=== PATIENT | male | born 1970 | race Two or more races ===

== ENCOUNTER 2020-06-11 14:55 | Emergency (ER) | payer MEDICAID ==
[~2020-06-11] VITALS: Ht 165.1 cm; Wt 68.0 kg
--- NOTE | 2020-06-11 14:57 | NUR ---
ROSEMARIE FROM WORK, TO ER BED 10. AAOX4. NOT IN RESP DISTRES, BREATHING EVEN ADN UNLABORED. TEXTING ON HIS CELLPHONE. BROUGHT IN FOPR A WITNESSED SEIZURE LASTED 30SEC BY COWORKERS. REPORTED TONIC CLONIC. FIRST EPISODE, NO PRIOR SEIZURE HISTORY. NOTED TONGUE TRAUMA, NOT ACTIVELY BLEEDING. SEIZURE PRECAUTION IMPLEMENTED, PADDED SIDERAIL. ON MONITOR. AWAITING MD FOR EVAL.
--- NOTE | 2020-06-11 15:08 | NUR ---
DR BATES AT BEDSIDE
[2020-06-11] MEDS ORDERED: IV NS 0.9% 1,000 ML BAG IV ONE (15:30)
[2020-06-11 15:44] LABS: BASOPHILS % (AUTO) 0.6 % (0.0-2.0); EOSINOPHILS % (AUTO) 2.1 % (0.0-6.0); HEMATOCRIT 41 % (39-51); HEMOGLOBIN 13.9 g/dL (13.5-17.5); LYMPHOCYTES # (AUTO) 2.5 /CMM (0.8-4.8); LYMPHOCYTES % (AUTO) 38.9 % (20.0-44.0); MEAN CORPUSCULAR HGB CONC 34 g/dl (31.0-36.0); MEAN CORPUSCULAR VOLUME 94 fL (80-96); MONOCYTES # (AUTO) 0.5 /CMM (0.1-1.30); MONOCYTES % (AUTO) 8.3 % (2.0-12.0); NEUTROPHILS # (AUTO) 3.2 /CMM (1.8-8.9); NEUTROPHILS % (AUTO) 50.1 % (43.0-81.0); PLATELET COUNT (AUTO) 283 /CMM (150-450); RED BLOOD CELL COUNT(AUTO) 4.35 MIL/uL (4.5-6.0); WHITE BLOOD COUNT (AUTO) 6.5 K/uL (4.3-11.0)
[2020-06-11 16:04] LABS: CALCIUM, SERUM 8.1 mg/dL (8.5-10.1); CARBON DIOXIDE 25 mmol/L (21-32); CHLORIDE 101 mmol/L (98-107); CREATININE 0.9 mg/dL (0.6-1.3); GLUCOSE 103 mg/dL (74-106); POTASSIUM 3.3 mmol/L (3.5-5.1); SODIUM SERUM 136 mmol/L (136-145); UREA NITROGEN, BLOOD 13 mg/dL (7-18)
[2020-06-11 16:10] LABS: ALANINE AMINOTRANSFERASE 75 U/L (12-78); ALBUMIN 3.5 g/dL (3.4-5.0); ALCOHOL, BLOOD < 3 mg/dL (0-0); ALKALINE PHOSPHATASE 91 U/L (46-116); ASPARTATE AMINOTRANSFERASE 54 U/L (15-37); BILIRUBIN,DIRECT 0.1 mg/dL (0.0-0.2); BILIRUBIN,TOTAL 0.3 mg/dL (0.2-1.0)
[2020-06-11 17:10] LABS: CREATINE KINASE, TOTAL 489 U/L (39-308)
[2020-06-11] MEDS ORDERED: IV NS 0.9% 250 ML IV ONE (17:24)
[2020-06-11] MEDS ORDERED: IOHEXOL-350 100 ML VIAL IV ONE (17:24)
[2020-06-11] MEDS ORDERED: CT SWABBABLE VALVE TRANS SET 1 EA INFUS.SET MC ONE (17:24)
[2020-06-11] MEDS ORDERED: IV NS 0.9% 1,000 ML IV ONE (18:30)
--- NOTE | 2020-06-11 19:36 | NUR ---
OBDULIAID SWABBED, SENT TO LAB.
--- NOTE | 2020-06-11 20:18 | NUR ---
SPOKE WITH [facility] [facility] FROM [facility] AND GAVE CLINICAL INFORMATION. PER [facility], [facility] WILL CALL BACK WITH TRANSFER INFORMATION
--- NOTE | 2020-06-11 23:20 | NUR ---
CALL FROM [facility]. PT ACCEPTED TO [facility] BY DR CANELA. # FOR REPORT [phone]. PENDING TRANSPORT ETA.
[2020-06-11 23:31] VITALS: BP 124/76
--- NOTE | 2020-06-11 23:37 | NUR ---
[facility] ETA [id number]
--- NOTE | 2020-06-12 00:06 | NUR ---
REPROT GIVEN TO [facility] FOR [facility]
--- NOTE | 2020-06-12 00:49 | NUR ---
report given to [facility] RN, Pt transfered.
== END 2020-06-12 01:10 | disposition short-term general hospital (02) ==
LOC: ER 14:55
DX: Q28.2 Arteriovenous malformation of cerebral vessels (principal); R56.9 Unspecified convulsions; E87.6 Hypokalemia; E87.2 Acidosis; Z20.828 Contact with and (suspected) exposure to other viral communicable diseases
CPT/HCPCS: 36415; 70450; 70496; 70498; 71045; 80048; 80076; 80307; 80320; 82550; 82553; 82962; 83605 ×2; 84484; 85025; 85730; 87426; 93005; 96360; 96361; 99291; C9803; J7030 ×2; J7050; Q9967; G0480